=== PATIENT | female | born 1940 | race Caucasian/White ===

== ENCOUNTER 2016-09-12 15:10 | Emergency (ER) | payer MEDICARE ==
--- NOTE | 2016-09-12 16:03 | UC ---
Elbow Pain - HPI Summary HPI Summary: 76 yo female with right elbow pain and swelling x 1 day no trauma - History of Current Complaint Chief Complaint: UCUpperExtremity Stated Complaint: RIGHT ARM SWELLING Time Seen by Provider: 09/12/16 15:23 Hx Obtained From: Patient Hx Last Menstrual Period: n/a Onset/Duration: Hours Severity Initially: Mild Severity Currently: Mild Pain Intensity: 3 - worse with extension Pain Scale Used: 0-10 Numeric Character: Dull, Aching Aggravating Factor(s): Movement Alleviating Factor(s): Rest Associated Signs And Symptoms: Positive: Negative - Allergies/Home Medications Allergies/Adverse Reactions: Allergies Allergy/AdvReac Type Severity Reaction Status Date / Time Morphine Allergy Severe Unknown Verified 09/12/16 15:35 Reaction Details Phenobarbital Allergy Severe Edema Verified 09/12/16 15:35 Adhesive Tape Allergy Intermediate IRRITATION Verified 09/12/16 15:35 WHEN ON FOR A LONG TIME Cephalexin Allergy Hives Verified 09/12/16 15:35 Enoxaparin [From Lovenox] Allergy Numbness Verified 09/12/16 15:35 Heparin AdvReac Intermediate STATES NO Verified 09/12/16 15:35 HEPARIN-WHOLE STOMACH TURNED PURPLE Hydromorphone [From Dilaudid] AdvReac Intermediate GI Upset Verified 09/12/16 15 :35 PMH/Surg Hx/FS Hx/Imm Hx Previously Healthy: Yes Cardiovascular History: Hypertension, Deep Vein Thrombosis Respiratory History: Pulmonary Embolism GI/ History: Kidney Stones, Renal Disease - Surgical History Surgical History: Yes Surgery Procedure, Year, and Place: 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 HIATAL HERNIA REPAIR AND GALLBLADDER REMOVED-1991. 2000- BUNION AND HAMMGERRYE. GASTRIC [id number]-. left knee replacement . GANGLION CYST REMOVED FROM RIGHT HAND. 2011-LEFT BREAST MASTECTOMY- [facility]. 2011-RADHA FILTER PLACED. 2013-LT TKA - Family History Known Family History: Positive: Hypertension - Social History Alcohol Use: None Substance Use Type: None Smoking Status (MU): Never Smoked Tobacco - Immunization History Most Recent Influenza Vaccination: 2012 Most Recent Tetanus Shot: unknown Most Recent Pneumonia Vaccination: 07/2013 Review of Systems Constitutional: Negative Skin: Negative Eyes: Negative ENT: Negative Respiratory: Negative Cardiovascular: Negative Gastrointestinal: Negative Genitourinary: Negative Motor: Negative Neurovascular: Negative Musculoskeletal: Myalgia Neurological: Negative Psychological: Negative All Other Systems Reviewed And Are Negative: Yes Physical Exam Triage Information Reviewed: Yes Appearance: Well-Appearing, No Pain Distress, Well-Nourished Vital Signs: Initial Vital Signs Temp 97.9 F 09/12/16 15:28 Pulse 59 09/12/16 15:28 Resp 18 09/12/16 15:28 Pulse Ox 100 09/12/16 15:28 Vital Signs Reviewed: Yes ENT: Positive: Hearing grossly normal, Other:. Negative: Nasal congestion, Nasal drainage, Trismus, Muffled/hoarse voice Neck: Positive: Supple, Nontender Respiratory: Positive: Lungs clear, Normal breath sounds, No respiratory distress Cardiovascular: Positive: RRR, No Murmur Musculoskeletal: Positive: Edema @ - see image Psychological Exam: Normal Skin Exam: Normal Skin: Positive: rashes Elbow Pain Course/Dx - Course Course Of Treatment: pt declined EMS transfer. discussed with Tabatha Srinivasan MD , accepts pt [facility] - Differential Dx/Diagnosis Provider Diagnoses: right elbow swelling of uncertain cause Discharge - Discharge Plan Condition: Good Disposition: AGAINST MEDICAL ADVICE Images Front/Back of Body, Lg ([place]): 1 - 3x 3 cm mass medially. tender. no erthyema or warmth
== END 2016-09-12 16:11 | disposition left against medical advice (07) ==
LOC: UCCORT 15:10
DX: M25.421 Effusion, right elbow (principal); I10 Essential (primary) hypertension; Z86.711 Personal history of pulmonary embolism
CPT/HCPCS: 99212; G0463

== ENCOUNTER 2017-05-28 19:34 | Emergency (ER) | payer MEDICARE ==
[2017-05-28] MEDS ORDERED: NS 0.9% 1000 ML* 1,000 ML IV ONE (20:06)
[2017-05-28 20:48] LABS: EGFR Non-African American 65.2 (>60)
[2017-05-28 20:51] LABS: INR 2.05 (0.77-1.02)
[2017-05-28 20:55] LABS: Urine Appearance Cloudy; Urine Blood 3+ (Negative); Urine Ketones Trace (Negative); Urine Protein 2+(100 mg/dL) (Negative); Urine Specific Gravity 1.019 (1.010-1.030); Urine Urobilinogen Negative (Negative)
[2017-05-28 20:58] LABS: Urine Color Amber
[2017-05-28 20:59] LABS: ABS Basophils 0 10^3/ul (0-0.2); ABS Eosinophils 0 10^3/ul (0-0.6); ABS Lymphocytes 1.4 10^3/ul (1.0-4.8); ABS Monocytes 0.3 10^3/ul (0-0.8); ABS Neutrophils 5.8 10^3/ul (1.5-7.7); ABS Nucleated RBC 0 10^3/ul; Eosinophil % 0.5 % (0-6); Hematocrit 39 % (35-47); Hemoglobin 12.9 g/dl (12.0-16.0); Lymphocyte % 18.8 % (25-47); Mean Corpuscular HGB Conc 33 g/dl (31-36); Mean Corpuscular Hemoglobin 27 pg (27-31); Mean Corpuscular Volume 80 fL (80-97); Mean Platelet Volume 10 um3 (7.4-10.4); Nucleated Red Blood Cells % 0; Platelet Count 224 10^3/ul (150-450); Red Blood Count 4.88 10^6/ul (4.0-5.4); Red Cell Distribution Width 16 % (10.5-15); White Blood Count 7.7 10^3/ul (3.5-10.8)
[2017-05-28] MEDS ORDERED: Morphine INJ* 4 MG/ML 1 ML SYRINGE (NEW SYRINGE VERSION) IV ONE (21:24)
[2017-05-28] MEDS ORDERED: Ondansetron INJ* 2 MG/ML VIAL IV ONE (21:25)
[2017-05-28] MEDS ORDERED: Morphine INJ* 4 MG/ML 1 ML SYRINGE (NEW SYRINGE VERSION) ONE (21:27)
[2017-05-28] MEDS ORDERED: Ondansetron INJ* 2 MG/ML VIAL ONE (21:27)
--- NOTE | 2017-05-28 21:28 | RAD ---
CLINICAL HISTORY: Right flank pain radiating to the abdomen. Relevant surgical history includes cholecystectomy, hysterectomy, gastric bypass surgery hernia repair and "Cruz[place] filter placement" COMPARISON: Most recent CT of the abdomen and pelvis is dated April 20, 2016 TECHNIQUE: Noncontrast CT examination of the abdomen and pelvis from the lung bases through the initial tuberosities. FINDINGS: VISUALIZED LUNG BASES: The visualized lung bases are grossly clear. There is no pleural effusion. ABDOMEN AND PELVIS: There is a small hiatal hernia. There is surgical material at the gastroesophageal junction gastric fundus consistent with the patient's history of gastric bypass surgery. Surgical material is also seen at the gastrojejunostomy. Evaluation of the solid organs and vasculature is limited without intravenous contrast. The liver, spleen, pancreas and adrenal glands are grossly normal in appearance. The gallbladder is surgically absent with clips in the gallbladder fossa.. At the posterior lateral lower pole of the left kidney there is an exophytic nodule measuring 1.6 cm with Hounsfield units greater than simple cyst. Essentially unchanged since the April 2016 CT examination of the June 12, 2015 CT examination. The left kidney is otherwise grossly normal. There are multiple renal calculi in the right collecting system, the largest a conglomeration of stones at the lower pole measuring 1.3 cm in greatest axial dimension. There is a moderate amount of right-sided hydronephrosis. At the right proximal ureter there is a 6 mm calcification (axial image 84). On the corresponding coronal plane images with renal stone measures up to 8 mm in greatest cephalocaudal dimension. There are no additional renal calculi seen in the more distal right ureter or in the urinary bladder. Evaluation of the gastrointestinal tract is limited without oral contrast. There is no pathologic dilatation of the small or large bowel. The appendix is not discretely identified in the right lower quadrant but there are no focal inflammatory changes consistent with acute appendicitis. Gas and stool seen throughout the length of the colon. There is no gross retroperitoneal or mesenteric lymphadenopathy. The uterus is surgically absent. At the infrarenal IVC there is what appears to be a Cook Celect IVC filter. Since the November 10, 2013 CT examination, filter has become tilted approximately 20 degrees with the tip towards the patient's left side. The retrieval hook appears to be closely apposed to the wall of the IVC. The wall of the IVC is directly apposed to the infrarenal abdominal aorta. The mildly calcified abdominal aorta and iliac arteries are normal in course and diameter. Degenerative changes include multilevel loss of intervertebral disc height involving the lower thoracic and lumbar spine, multilevel vacuum disc phenomenon and mild marginal osteophyte formation.There are no sinister bone lesions. IMPRESSION: 1. At the proximal more ureter there is a renal calculus measuring 8 mm in greatest cephalocaudal dimension with ipsilateral right-sided mild to moderate hydronephrosis. Additional nonobstructing renal calculi are also identified in the right collecting system. 2. There is a 1.6 cm soft tissue nodule extending from the posterior margin of the left kidney that is new since the November 10, 2013 CT examination. This nodule has not changed significantly since the more recent [address] examinations. On a nonemergent basis this nodule can be further characterized with renal ultrasound. 3. There is a retrievable Cook Celect IVC filter (not a [place] filter as indicated by the history on the requisition) in the infrarenal IVC that has become tilted with the tip towards the left side since the November 10, 2013 CT examination. According to the article and FDA recommendation cited at the bottom of this report, it is recommended that all patients without active PE or DVT be considered for IVC filter removal. 4. Additional chronic, degenerative and iatrogenic findings described in the body the report. Citations: 1. https://[employer] Pix[employer].com//nkk-ffnpqpk-iuldku-wtvtwugqpwayx-zn-boq-filter-retrieval 2. Tre Siddiqui et al, Decision analysis of retrievable inferior vena cava filters in patients without pulmonary embolism, Journal of Vascular Surgery, Venous and Lymphatic Disorders, December 2012;1:376-384.
[2017-05-28] MEDS ORDERED: Ketorolac INJ* 15 MG/ML 1 ML VIAL IV PUSH ONE (21:35)
[2017-05-28] MEDS ORDERED: Tamsulosin CAP* 0.4 MG PO ONE (21:36)
[2017-05-28] MEDS ORDERED: Ketorolac INJ* 15 MG/ML 1 ML VIAL ONE (21:38)
[2017-05-28] MEDS ORDERED: Levofloxacin TAB* 500 MG PO ONE (22:13)
[2017-05-28] MEDS ORDERED: Ondansetron ODT TAB* 4 MG SL PRN (22:26)
--- NOTE | 2017-05-28 23:01 | ED ---
[place] Camacho Julia, scribed for Svetlana Unger MD on 05/28/17 at 2008 . Abdominal Pain/Female - HPI Summary HPI Summary: This patient is a 77 year old F presenting to [facility] accompanied by her with a chief complaint of worsening right flank pain radiating to her lower abdomen. Patient reports hematuria beginning this morning, mild nausea, and dysuria. Patient denies fever. The patient rates the pain 4/10 in severity. Symptoms are similar to previous diagnosis of kidney stones. Patient has a surgical history of hiatal hernia repair, gastric bypass, appendectomy, and cholecystectomy. - History of Current Complaint Chief Complaint: EDFlankPain Stated Complaint: FLANK PAIN Time Seen by Provider: 05/28/17 19:56 Hx Obtained From: Patient Hx Last Menstrual Period: n/a Onset/Duration: Lasting Hours, Still Present Timing: Constant Pain Intensity: 4 Pain Scale Used: 0-10 Numeric Location: Flank - right Radiates: Yes Radiates to: RLQ Associated Signs and Symptoms: Positive: Urinary Symptoms - hematuria and dysuris, Nausea Simlar Episode/Dx as:: kidney stones Allergies/Adverse Reactions: Allergies Allergy/AdvReac Type Severity Reaction Status Date / Time adhesive tape Allergy Rash Verified 05/28/17 19:51 cephalexin Allergy Hives Verified 05/28/17 19:51 hydromorphone [From Dilaudid] Allergy GI Upset Verified 05/28/17 19:51 morphine Allergy Unknown Verified 05/28/17 19:51 Reaction Details phenobarbital Allergy Edema Verified 05/28/17 19:51 PMH/Surg Hx/FS Hx/Imm Hx Endocrine/Hematology History: Reports: Hx Diabetes - diet controlled Denies: Hx Anemia Cardiovascular History: Reports: Hx Angina, Hx Hypertension, Other Cardiovascular Problems/Disorders - pt states tachycardia Respiratory History: Reports: Hx Pneumonia - in the past, Hx Pulmonary Embolism - x2, Hx Sleep Apnea, Other Respiratory Problems/Disorders - bipap, pe x2 Denies: Hx Asthma - HX PE, Hx Chronic Bronchitis, Hx Chronic Obstructive Pulmonary Disease (COPD), Hx Cystic Fibrosis, Hx Lung Cancer, Hx Pleural Effusion, Hx Seasonal Allergies GI History: Reports: Hx Gall Bladder Disease - removed gallbladder, Hx Gastroesophageal Reflux Disease, Hx Hiatal Hernia, Hx Irritable Bowel, Hx Ulcer - hx, Other GI Disorders - TOMMY'S ESOPHAGUS, gallbladder removed, gastric bypass History: Reports: Hx Kidney Infection, Hx Kidney Stones, Other Problems/ Disorders - hx of stones and stents Denies: Hx Acute Renal Failure, Hx Benign Prostatic Hyperplasia, Hx Chronic Renal Failure Musculoskeletal History: Reports: Hx Arthritis, Hx Fibromyalgia, Hx Gout, Hx Osteoporosis, Hx Scoliosis, Other Musculoskeletal History - lt TKA Sensory History: Reports: Hx Eye Injury - reading Denies: Hx Contacts or Glasses, Hx Deafness, Hx Hearing Aid Opthamlomology History: Reports: Hx Eye Injury - reading Denies: Hx Contacts or Glasses Neurological History: Reports: Hx Headaches - HX OF IN THE PAST- PRIOR TO STARTING BP MEDICATION, Other Neuro Impairments/Disorders - headaches Psychiatric History: Reports: Other Psychiatric Issues/Disorders - ocd - Cancer History Cancer Type, Location and Year: left breast Hx Chemotherapy: Yes - 2011 - Surgical History Surgery Procedure, Year, and Place: 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 HIATAL HERNIA REPAIR AND GALLBLADDER REMOVED-1991. 2000- BUNION AND [facility]AMM[place]. GASTRIC [id number]-. left knee replacement . GANGLION CYST REMOVED FROM RIGHT HAND. 2011-LEFT BREAST MASTECTOMY- [facility]. 2011-RADHA FILTER PLACED. 2013-LT TKA Hx Anesthesia Reactions: No - Immunization History Date of Tetanus Vaccine: Unk Date of Influenza Vaccine: Fall 2012 Infectious Disease History: No Infectious Disease History: Denies: Hx Hepatitis, Traveled Outside the [place] in Last 30 Days - Family History Known Family History: Positive: Hypertension - Social History Alcohol Use: None Substance Use Type: Reports: None Smoking Status (MU): Never Smoked Tobacco Review of Systems Negative: Fever Positive: Abdominal Pain - RLQ pain, Nausea Positive: dysuria, flank pain, hematuria All Other Systems Reviewed And Are Negative: Yes Physical Exam - Summary Physical Exam Summary: VITAL SIGNS: Reviewed. GENERAL: Patient is a well-developed and nourished female who is lying comfortable in the stretcher. Patient is not in any acute respiratory distress. HEAD AND FACE: No signs of trauma. No ecchymosis, hematomas or skull depressions. No sinus tenderness. EYES: PERRLA, EOMI x 2, No injected conjunctiva, no nystagmus. EARS: Hearing grossly intact. Ear canals and tympanic membranes are within normal limits. MOUTH: Oropharynx within normal limits. NECK: Supple, trachea is midline, no adenopathy, no JVD, no carotid bruit, no c- spine tenderness, neck with full ROM. CHEST: Symmetric, no tenderness at palpation SKIN: Dry and warm LUNGS: Clear to auscultation bilaterally. No wheezing or crackles. CVS: Regular rate and rhythm, S1 and S2 present, no murmurs or gallops appreciated. ABDOMEN: Soft, non-tender. No signs of distention. No rebound no guarding, and no masses palpated. Bowel sounds are normal. EXTREMITIES: FROM in all major joints, no edema, no cyanosis or clubbing. NEURO: Alert and oriented x 3. No acute neurological deficits. Speech is normal and follows commands. Triage Information Reviewed: Yes Vital Signs On Initial Exam: Initial Vitals Temp Pulse Resp BP Pulse Ox 98.6 F 70 18 158/113 96 05/28/17 19:46 05/28/17 19:46 05/28/17 19:46 05/28/17 19:46 05/28/17 19:46 Vital Signs Reviewed: Yes Diagnostics - Vital Signs Vital Signs Temp Pulse Resp BP Pulse Ox 05/28/17 19:46 98.6 F 70 18 158/113 96 - Laboratory Result Diagrams: 05/28/17 20:10 05/28/17 20:10 Lab Statement: Any lab studies that have been ordered have been reviewed, and results considered in the medical decision making process. - CT A/P CT Interpretation Completed By: Radiologist - 1. At the proximal more ureter there is a renal calculus measuring 8 mm in greatest cephalocaudal dimension with ipsilateral right-sided mild to moderate hydronephrosis. Additional nonobstructing renal calculi are also identified in the right collecting system. 2. There is a 1.6 cm soft tissue nodule extending from the posterior margin of the left kidney that is new since the November 10, 2013 CT examination. This nodule has not changed significantly since the more recent [address] examinations. On a nonemergent basis this nodule can be further characterized with renal ultrasound. 3. There is a retrievable Cook Celect IVC filter (not a Radha filter as indicated by the history on the requisition) in the infrarenal IVC that has become tilted with the tip towards the left side since the November 10, 2013 CT examination. According to the article and FDA recommendation cited at the bottom of this report, it is recommended that all patients without active PE or DVT be considered for IVC filter removal. 4. Additional chronic, degenerative and iatrogenic findings described in the body the report. ED Physician has reviewed this report. Re-Evaluation - Re-Evaluation 1 Re-Evaluation Time: 22:20 Change: Improved - Patient is pain free at this time. Results discussed with patient. Patient will be discharged. Abdominal Pain Fem Course/Dx - Course Course Of Treatment: Patient presents with worsening right flank pain radiating to her lower abdomen. Patient reports hematuria beginning this morning, mild nausea, and dysuria. Symptoms are similar to previous diagnosis of kidney stones. Patient is given Toradol, Levaquin, Zofran, Flomax, and IV fluids. A A/ P CT is indicative of right urethra stone. Bloodwork is unremarkable. UA is indicative of a UTI. Patient is pain free in ED. Patient had no fever or chills , at home or while in ED. Patient is discharged with prescription for Percocet and Zofran to take as needed. She will follow up with Dr. Paulino tomorrow morning. - Diagnoses Provider Diagnoses: UTI (urinary tract infection), Renal colic, Right ureteral stone - Provider Notifications Discussed Care Of Patient With: Nolberto Paulino - urology Time Discussed With Above Provider: 22:12 Instructed by Provider To: Other - He states as long as patient does not have fever, patient can be discharged and can follow up in his office at 8:30 tomorrow morning. If patient wants to be admitted, hospitalist should admit. Discharge - Discharge Plan Condition: Stable Disposition: HOME Patient Education Materials: Renal Colic (ED), Ureteral Stones (ED), Urinary Tract Infection in Older Adults (ED) Referrals: Nolberto Paulino MD [Medical Doctor] - 1 Day (Follow up with Dr. Paulino or Dr. Dietrich tomorrow morning at 8:30am) Anthony Dietrich MD [Medical Doctor] - Additional Instructions: RETURN TO THE EMERGENCY DEPARTMENT FOR CHANGING OR WORSENING SYMPTOMS. The documentation as recorded by the [place] l[place] Julia accurately reflects the service I personally performed and the decisions made by , Svetlana Unger MD.
[2017-05-28 23:13] VITALS: BP 143/89
--- NOTE | 2017-05-30 09:23 | PN ---
Progress Note - Progress Note Date of Service: 05/30/17 Note: The patient's urine grew Escherichia coli greater than 100,000. Patient given a dose of Levaquin here. Discussed the patient is in no prescription was sent to the pharmacy. We'll send prescription for 2 more days of Levaquin 500mg daily has had antibiotics in OR yesterday. Levaquin is sensitive according to final culture.
== END 2017-05-28 23:10 | disposition home or self-care (01) ==
LOC: ED 19:34
DX: N39.0 Urinary tract infection, site not specified (principal); N23 Unspecified renal colic; N20.1 Calculus of ureter; R10.84 Generalized abdominal pain; R30.0 Dysuria; R31.9 Hematuria, unspecified
CPT/HCPCS: 36415; 74176; 80053; 81003; 81015; 83735; 85025; 85610; 85730; 86140; 87077; 87086; 87186; 96374; 96375; 99285; A9270-GY; J1885; J2270; J2405

== ENCOUNTER 2017-05-29 14:46 | Day surgery (SDC) | payer MEDICARE ==
--- NOTE | 2017-05-29 11:27 | HP ---
CC: Dr. Julissa Quiñones DATE OF ADMISSION: 05/29/2017. AGE: 77-year-old female. ADMITTING DIAGNOSES: 1. Right hydronephrosis. 2. Obstructing calculus right proximal ureter. 3. Right renal calculi. 4. Possible urinary tract infection. PLANNED PROCEDURE: Right stent insertion (possibly to be followed in the near future by shockwave or laser lithotripsy). SURGEON: Dr. Nolberto Paulino. HISTORY OF PRESENT ILLNESS: Kaylee See is a 77-year-old lady with a history or recurrent renal calc liv. She was evaluated in the emergency room on May 28 for gross hematuria and right flank pain and noted to have an approximately 8 mm calculus in the right proximal ureter along with multiple add itional right renal calculi and right hydronephrosis. Urine was positive for bacteria in the emergen cy department and she is now being brought in for urgent right stent insertion. Because she is on Cou madin, she will later on require definitive treatment for the calculi, either in the form of shockwav e or laser lithotripsy. PAST MEDICAL HISTORY: 1. Significant for recurrent renal calculi. 2. History of antiphospholipid antibody syndrome. 3. Obstructive sleep apnea. 4. History of pulmonary embolism. 5. Hypertension. 6. History of gastroesophageal reflux. 7. History of breast cancer. MEDICATIONS: 1. Celexa 10 mg a day. 2. Coumadin as directed. 3. Potassium Chloride 10 mEq twice a day. 4. Anastrozole 1 mg daily. 5. Lasix 20 mg daily. 6. Metoprolol 75 mg daily. ALLERGIES AND INTOLERANCES: MORPHINE, KEFLEX, PHENOBARBITAL. REVIEW OF SYSTEMS: She denies any chest pain or shortness of breath. She is currently not on any an tidiabetic medications (has been on them in the past). PHYSICAL EXAMINATION GENERAL: Pleasant, elderly lady. VITAL SIGNS: Blood pressure 136/80, pulse 54 per minute, oxygen saturation 95 percent on room air, t emperature 96. CARDIOVASCULAR: Regular rate and rhythm. S1, S2. LUNGS: Clear bilaterally. ABDOMEN: Soft with right flank tenderness. IMPRESSION: 77-year-old lady with gross hematuria and right flank pain secondary to an obstructing calculus in the right proximal ureter and possible associated urinary tract infection. PLAN: Urgent right stent insertion (to be followed in the near future by lithotripsy). [id number]/[facility] #: [id number]
[2017-05-29] MEDS ORDERED: Gentamicin ADULT (*) 40 MG/ML VIAL ONE (15:07)
[2017-05-29] MEDS ORDERED: Levofloxacin 500 MG IVPREMIX(* 500 MG/100 ML BAG IVPB ONE (15:07)
[2017-05-29] MEDS ORDERED: Iohexol 180 (CONTRAST) 10 ML SDV IV ONE (16:45)
[2017-05-29] MEDS ORDERED: fentaNYL* 50 MCG/ML 2 ML VIAL (100 MCG VIAL) ONE (17:22)
[2017-05-29] MEDS ORDERED: Midazolam* 1 MG/ML 5 ML VIAL (5 MG) ONE (17:22)
[2017-05-29] MEDS ORDERED: Ketorolac INJ* 30 MG/ML 1 ML VIAL ONE (17:39)
[2017-05-29] MEDS ORDERED: Dexamethasone IV* 4 MG/ML 1 ML (4 MG) ONE (17:39)
[2017-05-29] MEDS ORDERED: Propofol* 10 MG/ML 20 ML BTL IV PUSH ONE (17:39)
[2017-05-29] MEDS ORDERED: DiMENhydriNATE IV* 50 MG/ML VIAL ONE (17:39)
[2017-05-29] MEDS ORDERED: Ondansetron INJ* 2 MG/ML VIAL ONE (17:39)
[2017-05-29] MEDS ORDERED: Lidocaine 2% PF * 5 ML VIAL ONE (17:39)
--- NOTE | 2017-05-29 18:06 | RAD ---
INDICATION: Ureteroscopy. Stent exchange. COMPARISON: None FINDINGS: 5 seconds of fluoroscopy were provided for the urology department. Fluoroscopic spot imaging of the abdomen were obtained for operative control and show right ureteral stent placement . CPT II Codes: 6045F (fluoro time doc)
[2017-05-29] MEDS ORDERED: DiMENhydriNATE IV* 50 MG/ML VIAL IV PUSH PRN (18:09)
[2017-05-29] MEDS ORDERED: Acetaminophen TAB* 325 MG PO PRN (18:09)
[2017-05-29] MEDS ORDERED: Naloxone* 0.4 MG/ML 1 ML VIAL IV PRN (18:09)
[2017-05-29 18:48] VITALS: BP 106/68
--- NOTE | 2017-05-29 19:19 | RAD ---
INDICATION: Right ureteral stent placement COMPARISON: Retrograde pyelogram same date; CT May 28, 2017 TECHNIQUE: A single view of the abdomen is submitted. FINDINGS: Bones: There are no acute bony findings. Soft tissues: There is no IVC filter. There clips in the epigastric region. There clips in the gallbladder fossa. There is a right ureteral stent in expected position. Bowel gas pattern: Normal Calcifications: There is lower pole right-sided nephrolithiasis. Other: None IMPRESSION: RIGHT URETERAL STENT IN EXPECTED POSITION. RIGHT-SIDED NEPHROLITHIASIS.
--- NOTE | 2017-05-30 16:54 | OP ---
CC: Dr. Julissa Quiñones * DATE OF OPERATION: 05/29/17 - [facility] DATE OF : 44 SURGEON: Nolberto Paulino MD ANESTHESIA: General. ANESTHESIOLOGIST: Dr. Lara. PRE-OP DIAGNOSES: 1. Calculus right proximal ureter. 2. Right renal calculi. 3. Right hydronephrosis. POST-OP DIAGNOSES: 1. Calculus right proximal ureter. 2. Right renal calculi. 3. Right hydronephrosis. OPERATIVE PROCEDURE: Cystoscopy, right retrograde pyelogram, and right stent insertion. COMPLICATIONS: None. STENT USED: 6-Azeri stent right ureter. POST-OP CONDITION: Stable. INDICATIONS: Kaylee See is a 77-year-old lady with a history of recurrent renal calculi. She is on Coumadin. She was evaluated in the emergency room for gross hematuria, and right flank pain and noted to have an obstructing calculus in the right proximal ureter with additional renal calculi. She has been brought in for urgent right stent insertion to be followed at some point in the future by definitive treatment of the calculus when she can be temporarily off her Coumadin. DESCRIPTION OF PROCEDURE: After induction of general anesthesia, the patient was placed in dorsal lithotomy position. Sequential compression devices were in place and functioning. Initial evaluation revealed retracted stenotic urethral meatus. The bladder was examined. There was no evidence of any suspicious bladder lesions noted. A guide-wire was introduced into the right ureter, retrograde pyelogram revealed fullness of the right collecting system. I could not clearly visualize any radiopaque calculi on fluoroscopy, but this could be due to the patient's body habitus. A 6-Azeri stent was introduced and positioned under fluoroscopy with good proximal and distal positioning obtained. The bladder was emptied. The patient tolerated the procedure satisfactorily and was transferred back to recovery area in stable condition. The plan is to obtain a postoperative x-ray and then to decide whether to bring her back for shockwave lithotripsy or ureteroscopy with laser lithotripsy, depending on the x-ray findings. [id number]/[facility] #: [id number] MTDD
== END 2017-05-29 19:05 | disposition home or self-care (01) ==
LOC: OR 14:46
PROVIDERS: ATTEND Urology
DX: N13.2 Hydronephrosis with renal and ureteral calculous obstruction (principal); G47.33 Obstructive sleep apnea (adult) (pediatric); Z86.711 Personal history of pulmonary embolism; Z79.01 Long term (current) use of anticoagulants; I10 Essential (primary) hypertension; Z85.3 Personal history of malignant neoplasm of breast; Z88.5 Allergy status to narcotic agent; Z91.09 Other allergy status, other than to drugs and biological substances
CPT/HCPCS: 74018; 74420; C1876; J1100; J1240; J1580; J1885; J1956; J2250; J2405; J2704; J3010

== ENCOUNTER 2017-06-07 06:07 | Day surgery (SDC) | payer MEDICARE ==
--- NOTE | 2017-06-05 09:45 | HP ---
CC: Dr. Quiñones * HISTORY AND PHYSICAL: DATE OF PLANNED ADMISSION AND SURGERY: 06/07/17 HISTORY OF PRESENT ILLNESS: Ms. See is a 77-year-old white female who is admitted with a right ureteral calculus, status post placement of right ureteral stent for cystoscopy, right ureteroscopy, laser lithotripsy, and right ureteral stent exchange. Ms. See is a known stone former and had in the past required bilateral ureteroscopies and laser lithotripsies for ureteral calculi. She was doing fine until one week ago, when she presented with symptoms of right renal colic and was noted on CT to have an 8-mm calculus in the proximal right ureter. She was taken to the operating room where she had urgent placement of right ureteral stent. Postoperative KUB showed the stent in good position, there were calcifications in the right kidney, and also suggestive calculus in the proximal right ureter. The patient is now admitted for the above procedure. 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 She had bariatric surgery, which improved her diabetes. She has a history of Sanders's esophagus and is followed with periodic upper endoscopies. She had cholecystectomy and hysterectomy in the past, and gastric bypass surgery in 2006. MEDICATIONS: The patient is maintained on: 1. Pantoprazole 40 mg daily. 2. Anastrozole 1 mg daily because of past history of breast cancer. 3. She has a history of chronic edema of the lower extremities and is maintained on Lasix 20 mg daily. 4. She is hypertensive, maintained on losartan 25 mg daily. ALLERGIES: She reports being intolerant or allergic to MORPHINE, CEPHALOSPORIN , LOVENOX, PHENOBARBITAL. PHYSICAL EXAMINATION GENERAL: A moderately obese white female, who looks comfortable and no acute pain. VITAL SIGNS: Blood pressure 170/90, pulse of 64. LUNGS: Clear. HEART: Regular and rhythmic. No murmurs. ABDOMEN: Soft and no CVA tenderness. IMPRESSION: Right ureteral calculus, status post placement right ureteral stent. PLAN: Right ureteroscopy, laser lithotripsy, and right ureteral stent exchange. The plan is to keep the patient on the warfarin and not to discontinue it for the procedure. The patient might require additional procedures for the right renal calculi. [id number]/[facility] #: [id number] [facility]
[~2017-06-07 06:07] MED LIST: Buffered Lidocaine 0.9% SYRIN* 5 ML/SYR SYRINGE INTRADERM ONE; Levofloxacin 750 MG IVPREMIX(* 750 MG/150 ML BAG ONE; Sodium Citrate/Citric Acid* 15 ML UDC ONE; Sodium Citrate/Citric Acid* 15 ML UDC PO ONE
[2017-06-07] MEDS ORDERED: Iohexol 180 (CONTRAST) 10 ML SDV IV ONE (07:02)
[2017-06-07] MEDS ORDERED: Scopolamine 1.5 mg* PATCH ONE (07:16)
[2017-06-07] MEDS ORDERED: Midazolam* 1 MG/ML 2 ML VIAL (2 MG) ONE (07:21)
[2017-06-07 07:31] LABS: INR 2.07 (0.77-1.02)
[2017-06-07] MEDS ORDERED: Propofol* 10 MG/ML 20 ML BTL IV PUSH ONE (07:32)
[2017-06-07] MEDS ORDERED: Dexamethasone IV* 4 MG/ML 1 ML (4 MG) ONE (07:32)
[2017-06-07] MEDS ORDERED: Ondansetron INJ* 2 MG/ML VIAL ONE (07:32)
[2017-06-07] MEDS ORDERED: Lidocaine 2% PF * 5 ML VIAL ONE (07:32)
[2017-06-07] MEDS ORDERED: EPHEDrine (Pressors)* 50 MG/ML VIAL ONE (07:58)
[2017-06-07] MEDS ORDERED: Naloxone* 0.4 MG/ML 1 ML VIAL IV PRN (08:09)
[2017-06-07] MEDS ORDERED: DiMENhydriNATE IV* 50 MG/ML VIAL IV PUSH PRN (08:09)
[2017-06-07] MEDS ORDERED: Acetaminophen TAB* 325 MG PO PRN (08:09)
[2017-06-07] MEDS ORDERED: fentaNYL* 50 MCG/ML 2 ML VIAL (100 MCG VIAL) IV PRN (08:09)
[2017-06-07 09:05] VITALS: BP 160/80
--- NOTE | 2017-06-07 20:57 | OP ---
CC: Dr. Quiñones * DATE OF OPERATION: 06/07/17 - MERGED WITH [facility] DATE OF : 44 SURGEON: Anthony Dietrich MD ANESTHESIOLOGIST: Dr. Ky Allen ANESTHESIA: General. PRE-OP DIAGNOSES: 1. Right ureteral and renal calculi. 2. Status post placement of right ureteral stent. POST-OP DIAGNOSES: 1. Status post placement of right ureteral stent. 2. Multiple cluster stones in the right kidney. OPERATIVE PROCEDURE: 1. Cystoscopy. 2. Right ureteroscopy and extraction of fragments of right renal calculus. 3. Right pyeloscopy. 4. Right retrograde pyelography and placement of right ureteral stent (8-Lebanese ). INDICATION FOR PROCEDURE: Mrs. See is a 77-year-old female who is a known stone former and had required bilateral ureteroscopies in the past. She presented about 10 days ago with symptoms of right renal colic, and non- contrast CT of the abdomen and pelvis showed cluster of calculi in the right collecting system, right hydronephrosis, and cluster of calculi in the proximal right ureter measuring about 8 mm in size. The patient had urgent placement of right ureteral stent. Postoperative KUB showed the stent in good position, but no obvious abnormal calcifications were seen. The patient is admitted for the above procedure. PATHOLOGY AT CYSTOSCOPY: The distal limb of the stent was seen coming from the right orifice. There was expected edema of the bladder mucosa adjacent to the stent. The rest of the bladder wall looked normal and there were no suspicious bladder lesions seen. Upon right ureteroscopy, two calculi were noted in the proximal ureter. One of the calculi measured about 4 mm and the other one measured 3 mm. The larger calculus, fragmented as it was being extracted. Upon right pyeloscopy, there were several cluster of calculi noted in the mid and in the lower pole calices. The size of each stone in the clusters was about 1 to 2 mm maximum in size. No solid stone was seen. DESCRIPTION OF PROCEDURE: After successful general anesthesia, the patient was placed in the lithotomy position and was prepped and draped for a cystoscopy. Cystoscopy was performed. The distal limb of the right ureteral stent was pulled out to the level of the urethral meatus. A flexible-tip guidewire was then passed inside the lumen of the stent and positioned in the area of the renal pelvis and the stent was removed. A size 6.5 semi-rigid tapered ureteroscope was introduced inside the bladder. A flexible-tip basket was then introduced through the port of the ureteroscope and its flexible-tip was introduced inside the right ureter alongside the guidewire. That allowed the atraumatic introduction of the ureteroscope in the right ureter. The ureter was inspected and the stone fragments were noted. The basket was deployed and the fragments were extracted and two small fragments were sent for stone analysis. The ureteroscope was then reintroduced inside the ureter and inspection was carried all the way into the renal pelvis and no additional calculi were seen. It was decided to proceed with a flexible ureteroscopy to inspect the calices. A 10-12 Lebanese access sheath was then fed over the guidewire with its tip positioned in the proximal ureter. A flexible ureteroscope was then introduced inside the access sheath and passed without difficulty inside the renal pelvis. The calices were inspected and the cluster of calculi were noted in the mid and lower pole calices corresponding to the finding on the CT. Again, those were clusters of 1 to 2 mm stones that were felt to be too small to extract and too small to laser. The ureteroscope was then removed. The guidewire was reintroduced through the access sheath and the access sheath was removed. Right retrograde pyelography was performed. There was no evidence of any extravasation. A size 8-Lebanese stent was then placed with the proximal end coiling in renal pelvis and the distal end coiling inside the bladder. There was good drainage of contrast from the kidney and no extravasation. The patient tolerated the procedure well and left the operating room in good condition. The plan is to keep the stent in position for another week, it will be removed in the office as an outpatient. [id number]/[facility] #: [id number] [facility]
--- NOTE | 2017-06-08 10:06 | RAD ---
INDICATION: Right ureteral stent exchange COMPARISONS: May 29, 2009 TECHNIQUE: Fluoroscopy was provided for a retrograde pyelogram and stent placement. Total fluoroscopy time is: 16 seconds FINDINGS: Contrast is noted within the renal collecting system. A ureteral stent is noted. An IVC filter is noted. IMPRESSION: FLUOROSCOPY WAS PROVIDED FOR A RETROGRADE PYELOGRAM AND STENT PLACEMENT CPT II Codes: 6045F
== END 2017-06-07 09:42 | disposition home or self-care (01) ==
LOC: OR 06:07
PROVIDERS: ATTEND Urology
DX: N13.2 Hydronephrosis with renal and ureteral calculous obstruction (principal); Z86.711 Personal history of pulmonary embolism; Z79.01 Long term (current) use of anticoagulants; G47.33 Obstructive sleep apnea (adult) (pediatric); I10 Essential (primary) hypertension; E11.9 Type 2 diabetes mellitus without complications; D68.62 Lupus anticoagulant syndrome; R60.9 Edema, unspecified; E66.9 Obesity, unspecified
CPT/HCPCS: 36415; 74420; 82365; 85610; 88300; A9270-GY; C2625; J1100; J2250; J2405; J2704

== ENCOUNTER 2018-09-11 18:34 | Emergency (ER) | payer MEDICARE ==
[2018-09-11 19:31] VITALS: BP 191/68
--- NOTE | 2018-09-11 20:31 | UC ---
Shoulder Pain HPI - HPI Summary HPI Summary: Per director educational radio: "Tripped on carpet at [facility] this evening. Landed on right shoulder mostly. Pt holding arm at side, unable to move it without extreme pain. Sling applied at [facility]. Pain is 8. " -here w/ her cousin. unable to lift arm away from torso. no numbing. good circulation -recemnt left wrist surgery -lives alone but able to manage. never , no kids. -on coumadin for lupus anti-coagulant. INR has been nml recent. compliant w med -no bruising +fall hixtory. none in 2 yrs. -+ PE hx. +osteoprosis - History of Current Complaint Chief Complaint: UCUpperExtremity Stated Complaint: S/P FALL-RT SHOULDER INJURY Time Seen by Provider: 09/11/18 19:54 Hx Last Menstrual Period: n/a Pain Intensity: 8 Pain Scale Used: 0-10 Numeric - Allergies/Home Medications Allergies/Adverse Reactions: Allergies Allergy/AdvReac Type Severity Reaction Status Date / Time cephalexin [From Keflex] Allergy Hives Verified 06/07/17 06:30 heparin Allergy See Comment Verified 06/07/17 06:30 morphine Allergy Difficulty Verified 06/07/17 06:30 Breathing phenobarbital Allergy Rash Verified 06/07/17 06:30 hydromorphone [From Dilaudid] AdvReac GI Upset Verified 06/07/17 06:30 PMH/Surg Hx/FS Hx/Imm Hx Previously Healthy: Yes - Surgical History Surgical History: Yes Surgery Procedure, Year, and Place: 1982 hysterectomy. 1991 cholecystectomy and lap phuong repair. 2000 bunionectomy and hammertoe repair. 2006 gastric bypass - [place]. 2014 left knee replacement. right hand ganglion cyst removal. 2012-left breast mastectomy - [place]. 2011-RADHA FILTER PLACED - [place]. 2018 cystoscopy, right uteral stent [facility]. multiple surgeries for stents - [facility] - Family History Known Family History: Positive: Hypertension - Social History Alcohol Use: None Substance Use Type: None Smoking Status (MU): Never Smoked Tobacco Have You Smoked in the Last Year: No Household Exposure Type: Cigarettes - Immunization History Most Recent Influenza Vaccination: 2012 Most Recent Tetanus Shot: unknown Most Recent Pneumonia Vaccination: 07/2013 Review of Systems All Other Systems Reviewed And Are Negative: Yes Constitutional: Positive: Negative Skin: Positive: Negative Eyes: Positive: Negative ENT: Positive: Negative Respiratory: Positive: Negative Cardiovascular: Positive: Negative Gastrointestinal: Positive: Negative Genitourinary: Positive: Negative Motor: Positive: Decreased ROM Neurovascular: Positive: Negative Musculoskeletal: Positive: Arthralgia, Decreased ROM. Negative: Edema Neurological: Positive: Negative Psychological: Positive: Negative Is Patient Immunocompromised?: No Physical Exam Triage Information Reviewed: Yes Appearance: Well-Appearing, No Pain Distress, Well-Nourished - very pleasant, sitting comfortably but pain w/ movement Vital Signs: Initial Vital Signs Temp 97.5 F 09/11/18 19:24 Pulse 63 09/11/18 19:24 Resp 18 09/11/18 19:24 BP 191/68 09/11/18 19:24 Pulse Ox 100 09/11/18 19:24 Vital Signs Reviewed: Yes Eye Exam: Normal ENT Exam: Normal Neck exam: Normal Respiratory Exam: Normal Respiratory: Positive: Lungs clear, Normal breath sounds, No respiratory distress, No accessory muscle use Cardiovascular Exam: Normal Musculoskeletal: Positive: Other: - right shoulder tender lateral prox humerus. no bruising or swelling visble. Cr brisk. + 2 radial right. FROM fingers. elbow NT Neurological Exam: Normal Psychological Exam: Normal Skin Exam: Normal Shoulder Course/Dx - Course Course Of Treatment: Xray rt shoulder: proximal humerus frx. -ice, sling, oprtho f/u tomorrow. - Differential Dx/Diagnosis Differential Diagnosis/HQI/PQRI: Contusion, Fracture (Closed), Sprain, Strain Provider Diagnosis: Proximal humeral fracture Discharge - Sign-Out/Discharge Documenting (check all that apply): Patient Departure All imaging exams completed and their final reports reviewed: No - Discharge Plan Condition: Stable Disposition: HOME Patient Education Materials: Proximal Humerus Fracture (ED) Referrals: Julissa Quiñones MD [Primary Care Provider] - Zohaib Baez MD [Medical Doctor] - Additional Instructions: You have told us that you have seen several orthopedic surgeons and will think about whom you would want to follow up with. Regardless, you should be seen tomorrow not just because of the fracture, but because you are also on coumadin. Make sure to move your fingers as we need to be diligint about preventing blood clots. Notify your PCP. Go to ER if you have severe swelling and bruising overnight. -No NSAIDsf or pain b/c of coumadin. You can take tyelnol - Billing Disposition and Condition Condition: STABLE Disposition: Home
--- NOTE | 2018-09-12 11:29 | ED ---
Progress - Progress Note Progress Note: final xray read confirms the proximal humerus fx. Course/Dx - Diagnoses Provider Diagnoses: Proximal humeral fracture Discharge - Sign-Out/Discharge Documenting (check all that apply): Patient Departure All imaging exams completed and their final reports reviewed: Yes - Discharge Plan Condition: Stable Disposition: HOME Patient Education Materials: Proximal Humerus Fracture (ED) Referrals: Zohaib Baez MD [Medical Doctor] - Julissa Quiñones MD [Primary Care Provider] - Additional Instructions: You have told us that you have seen several orthopedic surgeons and will think about whom you would want to follow up with. Regardless, you should be seen tomorrow not just because of the fracture, but because you are also on coumadin. Make sure to move your fingers as we need to be diligint about preventing blood clots. Notify your PCP. Go to ER if you have severe swelling and bruising overnight. -No NSAIDsf or pain b/c of coumadin. You can take tyelnol - Billing Disposition and Condition Condition: STABLE Disposition: Home
== END 2018-09-11 21:35 | disposition home or self-care (01) ==
LOC: UCCORT 18:34
DX: S42.251A Displaced fracture of greater tuberosity of right humerus, initial encounter for closed fracture (principal); W18.09XA Striking against other object with subsequent fall, initial encounter; Y93.01 Activity, walking, marching and hiking; Y92.512 Supermarket, store or market as the place of occurrence of the external cause; Z79.01 Long term (current) use of anticoagulants; D68.62 Lupus anticoagulant syndrome
CPT/HCPCS: 99202; 99213; G0463